=== PATIENT | female | born 1955 | race Caucasian/White ===

== ENCOUNTER 2017-01-07 09:56 | Inpatient (IN) | payer OTHER ==
[~2017-01-07] VITALS: Ht 160 cm; Wt 85.0 kg
--- NOTE | ~2017-01-07 | HC ---
[facility] [place] [address] CONSULTATION Name: OLIVIA FLOWERS Room #: 212-P ADM IN M.R.#: [id number] Admission: 01/07/17 Attend Phys: Matt Grossman MD Discharge: Date of : 55 Report #: [id number] THIS REPORT FOR: //name// CC: Matt Grossman NO PCP REASON FOR CONSULTATION: Chest pain. HISTORY OF PRESENT ILLNESS: The patient is a nice 61-year-old woman with history of hypertension, dyslipidemia, and diabetes. She presented in 08/2016 at [facility] with predominantly GI symptoms, had an abnormal nuclear stress study and underwent coronary angiography with stenting. She then went back to her home in [place] and had recurrent pain and underwent a followup angiogram in August at which time 1 or 2 additional medicated stents were placed. She does not know whether she has had a heart attack or not. She has been compliant with her dual antiplatelet therapy. She now presents with a 1-week history of a dull epigastric pain. This started last Monday, although seemed to get much worse yesterday morning. She took some Sprite, which gave her dry heaves and a lot of belching. The pain has never ultimately gone away. Multiple serial cardiac enzymes have been normal and her initial EKG was normal. She does have some shortness of breath with activity, although denies orthopnea or paroxysmal nocturnal dyspnea. ALLERGIES: She is allergic to BIAXIN. MEDICATIONS: Include aspirin 81 mg daily, insulin 70/30, metformin 500 mg twice daily, Imdur 30 mg daily, Plavix 75 mg daily, lisinopril 10 mg daily, pantoprazole 40 mg daily, carvedilol 6.25 mg twice daily, atorvastatin 80 mg daily. PAST MEDICAL HISTORY: Her past history and medical records have been reviewed and include history of coronary artery disease, diabetes, dyslipidemia, hypertension. She has a history of tonsillectomy, cholecystectomy, bilateral tubal ligation, diabetes. SOCIAL HISTORY: Ongoing smoker. FAMILY HISTORY: Notable for premature coronary artery disease with her father. REVIEW OF SYSTEMS: All systems negative except as that noted above. PHYSICAL EXAMINATION: GENERAL: A pleasant woman in no distress. VITAL SIGNS: Blood pressure is 140/70, heart rate is 73 and regular. She is afebrile, 5 feet 3 inches tall, 188 pounds. HEENT: There are neither xanthelasma, subcutaneous xanthomata, oral mucosal or digital cyanosis or kyphoscoliosis present. [facility] [address] [place] [address] CONSULTATION Name: OLIVIA FLOWERS Room #: 212-P [facility] IN .R.#: [id number] Admission: 01/07/17 Attend Phys: Matt Grossman MD Discharge: Date of : 55 Report #: [id number] CHEST: Clear to auscultation and percussion. CARDIOVASCULAR: Regular rate and rhythm with normal S1, S2. No murmurs or rubs. ABDOMEN: Soft and nontender. EXTREMITIES: Without cyanosis, clubbing, or edema. Radial pulses are 2+. NEUROLOGIC: She is alert with a nonfocal exam. LABORATORY DATA: EKG normal sinus rhythm, normal tracing. Sodium 142, potassium 4.5, creatinine 0.7. Troponin of 0. White count 5.2, hemoglobin 11, hematocrit 33, platelet count 181. CTA is negative for aortic dissection or pulmonary emboli. Chest x-ray is normal. IMPRESSION: 1. Ongoing epigastric pain, somewhat unusual for ischemic symptoms given the duration of symptoms, now with multiple normal troponins and normal EKG. 2. Coronary artery disease with fairly recent stenting, medicated stents. 3. Diabetes. 4. Hypertension. 5. Dyslipidemia. 6. Tobacco dependency. RECOMMENDATIONS: 1. Continue dual antiplatelet therapy. 2. Pharmacologic stress study. 3. Smoking cessation strongly encouraged. 4. Continued efforts towards aggressive risk factor modification recommended. <ELECTRONICALLY SIGNED> By: Martir Santos MD, [facility] 01/09/17 0818 [id number] Martir Santos MD, FACC /nt
--- NOTE | ~2017-01-07 | EKG ---
[place] [address] [facility] [place] [address] ELECTROCARDIOGRAM REPORT Name: OLIVIA FLOWERS Room #: 212-P ADM IN M.R.#: [id number] Admission: 01/07/17 Attend Phys: Matt Grossman MD Discharge: Date of : 55 Report #: [id number] THIS REPORT FOR: //name// [facility] Test Date: 2017-01-08 Test Time: 09:06:04 Pat Name: OLIVIA FLOWERS Department: Room: 212 P Gender: F Insert Cutter: NAHID : 1955 Requested By: Martir Santos Order Number: [id number] MD: Martir Santos Measurements Intervals [place] Rate: 76 P: -8 WY: 185 QRS: 13 QRSD: 89 T: 5 QT: 371 QTc: 418 Interpretive Statements Sinus rhythm Poor R wave progression Baseline wander in lead(s) V2 No previous ECG available for comparison Electronically Signed On 01-08-2017 11:57:20 CDT by Martir Santos [email or web address] <ELECTRONICALLY SIGNED> By: Martir Santos MD, [facility] 01/08/17 1157 5 5 Martir Santos MD, [facility] /EPI
--- NOTE | ~2017-01-07 | EKG ---
[place] [address] [facility] [place] [address] ELECTROCARDIOGRAM REPORT Name: OLIVIA FLOWERS Room #: 212-P ADM IN M.R.#: [id number] Admission: 01/07/17 Attend Phys: Matt Grossman MD Discharge: Date of : 55 Report #: [id number] THIS REPORT FOR: //name// [facility] ED Test Date: 2017-01-07 Test Time: 09:59:45 Pat Name: OLIVIA FLOWERS Department: Room: [facility] Gender: F Complaint Clerk: JE : 1955 Requested By: Rosio Parada Order Number: [id number] MD: Martir Santos Measurements Intervals [place] Rate: 87 P: 22 W[place]: 161 QRS: 34 QRSD: 83 T: 33 QT: 338 QTc: 407 Interpretive Statements Sinus rhythm Low voltage, precordial leads Baseline wander in lead(s) III,V5 No previous ECG available for comparison Electronically Signed On 01-08-2017 11:44:17 CDT by Martir Santos [email or web address] <ELECTRONICALLY SIGNED> By: Martir Santos MD, [facility] 01/08/17 1144 [phone] Martir Santos MD, [facility] /EPI
[2017-01-07 09:57] VITALS: BP 107/65
[2017-01-07 10:46] LABS: ABSOLUTE NEUTROPHILS 8.5 thou/uL (1.4-8.2); BASOPHILS 0.8 % (0.0-2.0); EOSINOPHILS 2.2 % (0.0-3.0); HEMATOCRIT 37.9 % (37.0-47.0); HEMOGLOBIN 12.7 gm/dL (12.0-15.0); LYMPHOCYTES 12.6 % (24.0-44.0); MCH 28.5 pg (26.0-34.0); MCHC 33.4 g/dL (28.0-37.0); MCV 85.2 fL (80.0-100.0); MONOCYTES 5.5 % (1.0-8.0); PLATELET COUNT 226 thou/uL (150-400); POLYS 78.9 % (36.0-66.0); RBC 4.45 mil/uL (4.20-5.00); RDW 14.3 % (10.5-14.5); WBC 10.8 thou/uL (4.0-11.0)
[2017-01-07 10:48] LABS: MANUAL DIFF NO
[2017-01-07 11:05] LABS: ANION GAP 10 mmol/L (7-16); BUN 24 mg/dL (7-18); CALCIUM 9.2 mg/dL (8.5-10.1); CHLORIDE 103 mmol/L (98-107); CO2 22 mmol/L (21-32); CREATININE 1.1 mg/dL (0.6-1.0); GLUCOSE 139 mg/dL (74-106); POTASSIUM 5.4 mmol/L (3.5-5.1); SODIUM 135 mmol/L (136-145); TROPONIN-I < 0.04 ng/mL (<0.04-0.07)
[2017-01-07 14:20] VITALS: BP 88/57
[2017-01-07] MEDS ORDERED: LISINOPRIL10 MG PO (14:43)
[2017-01-07] MEDS ORDERED: PLAVIX 75 MG TA75 M1 PO (14:44)
[2017-01-07] MEDS ORDERED: PROTONIX40 M1 PO (14:44)
[2017-01-07] MEDS ORDERED: COREG6.25 MG PO (14:44)
[2017-01-07] MEDS ORDERED: ASPIR 8181 M1 PO (14:44)
[2017-01-07] MEDS ORDERED: IMDUR 30 MG TAB30 M1 PO (14:45)
[2017-01-07] MEDS ORDERED: ATORVASTATIN CA40 MG PO (14:45)
[2017-01-07 17:15] VITALS: BP 118/59
[2017-01-07 19:55] VITALS: BP 78/47
[2017-01-07 23:33] VITALS: BP 98/51
[2017-01-08 03:59] VITALS: BP 140/77
[2017-01-08 05:07] LABS: ALBUMIN 2.8 g/dL (3.4-5.0); ALKALINE PHOSPHATASE 90 U/L (46-116); ANION GAP 9 mmol/L (7-16); BUN 13 mg/dL (7-18); CALCIUM 8.7 mg/dL (8.5-10.1); CHLORIDE 108 mmol/L (98-107); CO2 25 mmol/L (21-32); CREATININE 0.7 mg/dL (0.6-1.0); GLUCOSE 121 mg/dL (74-106); POTASSIUM 4.5 mmol/L (3.5-5.1); SGOT 15 U/L (15-37); SGPT 21 U/L (30-65); SODIUM 142 mmol/L (136-145); TOTAL BILIRUBIN 0.3 mg/dL (<0.1-1.0); TOTAL PROTEIN 6.4 g/dL (6.4-8.2); TROPONIN-I < 0.04 ng/mL (<0.04-0.07)
[2017-01-08 05:28] LABS: HEMATOCRIT 33.9 % (37.0-47.0); HEMOGLOBIN 11.3 gm/dL (12.0-15.0); MCH 28.4 pg (26.0-34.0); MCHC 33.2 g/dL (28.0-37.0); MCV 85.5 fL (80.0-100.0); RBC 3.97 mil/uL (4.20-5.00); RDW 14.3 % (10.5-14.5); WBC 5.2 thou/uL (4.0-11.0)
[2017-01-08 07:50] VITALS: BP 100/54
[2017-01-08 11:05] VITALS: BP 122/50
[2017-01-08 16:20] VITALS: BP 117/50
[2017-01-08 19:30] VITALS: BP 115/54
[2017-01-08 19:48] VITALS: BP 112/52
[2017-01-09 04:00] VITALS: BP 98/51
[2017-01-09 07:15] VITALS: BP 107/48
[2017-01-09 12:15] VITALS: BP 127/50
[2017-01-09 17:10] VITALS: BP 112/68
[2017-01-09 17:59] VITALS: BP 112/68
[2017-01-09 19:46] VITALS: BP 112/68
== END 2017-01-09 19:47 | disposition home or self-care (01) | DRG 206 ==
LOC: ER 09:56 → EROBS 12:55 → 2N 12:55
PROVIDERS: Internal Medicine; Nurse Practitioner Family
DX: M94.0 Chondrocostal junction syndrome [Tietze] (principal); I25.10 Atherosclerotic heart disease of native coronary artery without angina pectoris; E11.9 Type 2 diabetes mellitus without complications; F17.210 Nicotine dependence, cigarettes, uncomplicated; E87.5 Hyperkalemia; I95.9 Hypotension, unspecified; I10 Essential (primary) hypertension; E78.5 Hyperlipidemia, unspecified; Z79.899 Other long term (current) drug therapy; Z95.5 Presence of coronary angioplasty implant and graft; Z79.4 Long term (current) use of insulin; Z79.82 Long term (current) use of aspirin; Z88.1 Allergy status to other antibiotic agents; Z90.49 Acquired absence of other specified parts of digestive tract; Z82.49 Family history of ischemic heart disease and other diseases of the circulatory system; Z71.6 Tobacco abuse counseling
CPT/HCPCS: 10194